=== PATIENT | male | born 1985 | race Caucasian/White ===

== ENCOUNTER 2020-10-01 05:09 | Emergency (ER) | payer SELFPAY ==
[2020-10-01 05:33] VITALS: PULSE 82; TEMP 98.3; BMI 29.7
[2020-10-01 06:34] LABS: BASO % 0.6 % (0-2.0); EOS % 5.1 % (0-4.5); HEMATOCRIT 44.3 % (35.4-49); LYMPH % 22.4 % (8-40); MCH 34.7 pg (25.7-33.7); MEAN CELL VOLUME 96.3 fl (80-96); MEAN PLT VOLUME 7.5 fl (7.5-11.1); MONO % 7.9 % (3.8-10.2); PLATELET COUNT 193 10^3/uL (134-434); RDW 13.1 % (11.9-15.9); WHITE BLOOD COUNT 5.7 K/mm3 (4.0-10.0)
[2020-10-01] MEDS ORDERED: SODIUM CHLORIDE 0.9% 500 ML INFUS.BAG IV ONE (06:35)
[2020-10-01 06:54] LABS: CHLORIDE 99 mmol/L (98-107); SODIUM 135 mmol/L (136-145)
[2020-10-01 06:56] LABS: ALBUMIN 4.3 g/dl (3.4-5.0); ANION GAP 13 MMOL/L (8-16); CALCIUM 8.9 mg/dL (8.5-10.1); CO2 24 mmol/L (21-32); LIPASE 61 U/L (73-393)
[2020-10-01 06:57] LABS: BLOOD UREA NITROGEN 7.4 mg/dL (7-18); GLUCOSE,RANDOM 127 mg/dL (74-106)
[2020-10-01 06:59] LABS: CREATININE 0.8 mg/dL (0.55-1.3); SGOT/AST 97 U/L (15-37); SGPT/ALT 236 U/L (13-61)
[2020-10-01 07:01] LABS: BILIRUBIN,TOTAL 0.5 mg/dL (0.2-1); TOT PROT 8.4 g/dl (6.4-8.2)
[2020-10-01 07:02] LABS: ALK PHOS 74 U/L (45-117)
[2020-10-01] MEDS ORDERED: LORazepam 2 MG TABLET PO ONE (07:04)
[2020-10-01] MEDS ORDERED: LORazepam 1 MG TABLET ONE (07:07)
[2020-10-01 09:20] VITALS: BP 130/84
== END 2020-10-01 09:22 | disposition home or self-care (01) ==
LOC: JER 05:09
DX: R11.0 Nausea (principal)
CPT/HCPCS: 36415; 80053; 80307; 82550; 82553; 83690; 84443; 84484; 85025; 93005; 93010; 99284-25

== ENCOUNTER 2021-12-08 06:08 | Emergency (ER) | payer OTHER ==
[2021-12-08 06:14] VITALS: BP 143/89; PULSE 81; RESP 17; TEMP 98.2; BMI 29.7
[2021-12-08] MEDS ORDERED: POLYMYXIN B SULFATE/TMP 10 ML OPHTHALMIC SOLUTION OD SCH ×2 (06:44→10:00)
== END 2021-12-08 07:48 | disposition home or self-care (01) ==
LOC: JER 06:08
DX: H10.31 Unspecified acute conjunctivitis, right eye (principal)
CPT/HCPCS: 99283-25